=== PATIENT | female | born 1960 | race Caucasian/White ===

== ENCOUNTER 2018-07-11 13:28 | Emergency (ER) | payer BC, SELFPAY ==
[2018-07-11 13:33] VITALS: BP 124/56; PULSE 68; RESP 12; TEMP 36.6; O2SAT 99
--- NOTE | 2018-07-11 13:57 | DI.CT_ITS ---
SYMPTOMS/DIAGNOSIS: ABD DISCOMFORT, BLOATING, GAS CT OF THE ABDOMEN AND PELVIS: Images were performed from the lung bases through the ischial tuberosities after IV and oral contrast. There are several tiny cysts seen in the liver and both kidneys. There is mild prominence of both renal collecting systems without evidence of obstructing stone. The bladder is somewhat distended which could cause some distention of the collecting systems. There is no bowel dilatation or inflammatory change. The spleen, gallbladder, pancreas and adrenals as well as uterus and ovaries are unremarkable. There is no free air or free fluid or adenopathy. The heart size appears normal. The lung bases are clear. IMPRESSION: No acute abnormality.
--- NOTE | 2018-07-11 13:57 | DI.CT_ITS ---
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 There is no evidence of a mass, hemorrhage or infarct. The ventricles are normal in size. No bony destruction is seen. There is no evidence of sinus or mastoid air cell opacification. IMPRESSION: Right temporal craniotomy. No acute abnormality.
[2018-07-11] MEDS: Breeza Beverage 473 ML BTL PO ×2 (14:23→14:24)
[2018-07-11] MEDS: Omnipaque 350 MG/ML 50 ML BTL IJ (14:23)
[2018-07-11 14:43] LABS: Bilirubin Negative (Negative); Blood Negative (Negative); Clarity Clear; Glucose Negative (Negative); Ketones Negative (Negative); Leukocyte Esterase Negative (Negative); Nitrite Negative (Negative); Urobilinogen 0.2 EU/dL (Up TO 0.2)
[2018-07-11 14:45] LABS: Abs Immature Grans 0.01 k/cumm (0.0-0.09); Absolute Basophil Count 0.02 k/cumm (0.0-0.2); Absolute Eosinophil Count 0.05 k/cumm (0.0-0.7); Absolute Lymphocyte Count 1.26 k/cumm (1.2-3.4); Absolute Monocyte Count 0.22 k/cumm (0.11-0.7); Absolute Neutrophil Count 2.78 k/cumm (1.2-6.7); Basophils % 0.5; Eosinophils % 1.2; HCT 43.6 % (36.0-46.0); HGB 14.5 g/dL (12.0-15.5); Immature Grans % 0.2; Mean Corp. HGB Concentration 33.3 g/dL (32.0-36.0); Mean Corpuscular Hemoglobin 30.4 pg (27.0-33.0); Mean Corpuscular Volume 91.4 fL (80-95); Mean Platelet Volume 9.7 fL (8.0-11.0); Monocytes % 5.1; Platelet Count 222 x1000/uL (130-400); RBC 4.77 m/cumm (4.00-5.20); RBC Distribution Width 13.4 % (11.7-14.6); White Blood Cell Count 4.34 k/cumm (4.4-10.8)
[2018-07-11 15:04] LABS: ALT 33 U/L (12-78); AST 27 U/L (15-37); Albumin 4.5 g/dL (3.4-5.0); Alkaline Phosphatase 64 U/L (46-116); Anion Gap 8.4 mmol/L (3-11); BUN 15 mg/dL (7-18); Bilirubin, Total 0.4 mg/dL (0.2-1.0); CO2 30.6 mmol/L (21.0-32.0); CREATININE 0.75 mg/dL (0.55-1.02); Calcium 10.1 mg/dL (8.5-10.1); Chloride 102 mmol/L (98-107); Glucose 113 mg/dL (70-100); Lipase 163 U/L (73-393); Magnesium 1.9 mg/dL (1.8-2.4); Potassium 3.8 mmol/L (3.5-5.1); Sodium 141 mmol/L (136-145); Total Protein 8.1 g/dL (6.4-8.2)
--- NOTE | 2018-07-11 15:14 | W.ED.GENAD ---
Discharge Plan Disposition Patient Disposition: HOME Condition: Stable Discharge Details Chief Complaint: Dizzy/Sync Clinical Impression: Belching symptom, Vagal reaction Primary Care Provider: Jimi Diego ED Provider: Cisco Dee Home Meds and New Rx's Prescriptions: New simethicone 125 mg capsule 125 mg PO QID PRN (Reason: abdominal distention) Qty: 20 RF: 0 Continued montelukast [Singulair] 10 mg Tablet 10 mg PO QPM RF: 0 fluticasone [Flonase Allergy Relief] 50 mcg/actuation [place],Suspension 1 spray Intranasal DAILY RF: 0 Discharge Instructions Instructions: Gas and Bloating (ED) Additional Instructions: Feel free to return to the emergency department for any new or worsening symptoms otherwise follow-up with your primary care provider as needed for reassessment Referrals: Jimi Diego [Primary Care Provider] - (Follow-up with your primary care provider for reassessment) Discharge Data Discharge Date/Time-TO BE ENTERED AT DEPARTURE: 07/11/18 17:00 Medical Decision Making Patient presenting to the emergency department for chief complaint of abdominal distention, belching, chest pressure and dizziness. Patient states that this is been going on for 6 months since she has had radiation therapy but 5 days ago she had a colonoscopy that is worsened her belching symptoms that occasionally to chest pressure, diaphoresis, and syncope or near syncope. Patient states that the symptoms are similar with the addition to some of the dizziness and one episode of syncope that occurred just prior to her colonoscopy. Physical exam is unremarkable except for significant belching during examination. Plan to check labs, CT imaging, and head CT given patient's history of brain mass. Review of labs is unremarkable, head CT shows no acute findings, and abdomen CD shows normal stomach and bowels with no obstruction or mucosal thickening. There is a radiologist read of mild bilateral hydronephrosis with otherwise no findings are noted. Patient reassessed and has had no new or worsening symptoms. Thoroughly discussed possible vagal response due to excess gas and belching as possibility of causing her symptoms given her description that the gas buildup seems to stimulate all the other symptoms but I feel that diagnosis is not straightforward. I am reassured that patient states that the symptoms have been going on for 6 months. Patient does state that she is been working on a follow-up with GI specialist at [facility]. attempt to help relieve some symptoms patient was prescribed simethicone 125 4 times daily to see if this helps. After discussion of diagnosis and plan of care patient has no further needs, questions, or concerns and states clear understanding to return to the emergency department for any worsening symptoms. ECG Data Interpretation: EKG shows sinus rhythm with a rate of 69, no acute ST changes. HPI General Mode of arrival: ambulatory. Date/Time Provider Initiated Documentation: 07/11/18 13:38. Limitations to Documentation: no limitations. Information obtained by: patient and RN notes reviewed. History of Present Illness 57 year old F presents to the emergency department with the chief complaint of dizziness, chest pressure, abdominal pain/gas/bloat, described as mild, with intensity rated at 1. Quality is described as aching (bloating), and is localized to the abdomen. Patient started experiencing this month(s) (6) and it has been constant. No relieving factors improve symptom(s), No exacerbating factors reported . Patient notes no other symptoms.. Patient did receive the following treatments prior to arrival, none Related Data Home Medications Medication Instructions Recorded Confirmed fluticasone [Flonase Allergy 1 spray INTRANASAL DAILY 07/11/18 07/11/18 Relief] montelukast [Singulair] 10 mg PO QPM 07/11/18 07/11/18 simethicone 125 mg PO QID PRN #20 cap 07/11/18 Previous Rx's Medication Instructions Recorded simethicone 125 mg PO QID PRN #20 cap 07/11/18 Allergies Allergy/AdvReac Type Severity Reaction Status Date / Time Penicillins Allergy Severe Anaphylaxsi Unverified 07/11/18 13:40 s General Stated Complaint: Dizzy/Sync JANEEN: 3 Review of Systems Constitutional Denies chills, Denies fever(s) and Reports poor appetite ENT Reports dizziness Cardiovascular Reports chest pain, Reports diaphoresis, Reports lightheadedness and Denies dyspnea Respiratory Denies dyspnea Gastrointestinal Reports as per HPI, Reports abdominal pain, Reports belching, Denies melena, Reports bloating, Denies change in bowel habits, Denies constipation, Reports excessive flatus, Denies diarrhea, Reports nausea and Reports vomiting Genitourinary Denies hematuria, Denies urinary incontinence, Denies urinary hesitancy and Denies urinary urgency Integumentary/Breasts Denies rash Neurologic Reports dizziness PFSH Social History Smoking/Tobacco Use Status: Former Tobacco Use Exam Const General: cooperative Orientation: alert, awake and oriented x3 Resp Effort & Inspection: normal respiratory effort and able to speak in complete sentences Auscultation: clear to auscultation bilaterally Cardio Rate: regular rate Rhythm: regular rhythm Heart Sounds: S1 normal and S2 normal GI Inspection: other (belching) Palpation: soft, no hepatosplenomegaly, not firm, no guarding, no masses, no pulsatile masses, not rigid, no splenomegaly and nontender Auscultation: normal bowel sounds Back/Spine/Pelvis Back: no CVA tenderness Neuro General: alert, awake, oriented x3, gait normal, tone normal, moves all extremities, no meningeal signs, no focal motor deficits, CN's II-XI intact bilaterally, not confused and not obtunded Cognition: normal cognition Speech: speech normal Gait: normal gait Motor: muscle tone normal throughout Sensory Exam: no sensory deficits noted Course Vital Signs Temperature 36.6 C 07/11/18 13:33 Pulse 68 07/11/18 13:33 Respiratory Rate 12 07/11/18 13:33 Blood Pressure 124/56 L 07/11/18 13:33 Pulse Oximetry 99 07/11/18 13:33 Temperature 36.6 C 07/11/18 13:33 Temperature Source Skin 07/11/18 13:33 Pulse 68 07/11/18 13:33 Respiratory Rate 12 07/11/18 13:33 Respiratory Effort 07/11/18 14:01 Blood Pressure 124/56 L 07/11/18 13:33 Blood Pressure Position Sitting 07/11/18 13:33 Pulse Oximetry 99 07/11/18 13:33 Oxygen Delivery Method Room Air 07/11/18 13:33 Oxygen Flow Rate 0 07/11/18 13:33 Pain Level 1 07/11/18 13:33 Lab/Test Results Lab/Test Results: Laboratory Tests Range/Units 07/11/18 07/11/18 14:01 14:40 WBC (4.4-10.8) k/cumm 4.34 L RBC (4.00-5.20) m/cumm 4.77 Hgb (12.0-15.5) g/dL 14.5 Hct (36.0-46.0) % 43.6 MCV (80-95) fL 91.4 MCH (27.0-33.0) pg 30.4 MCHC (32.0-36.0) g/dL 33.3 RDW (11.7-14.6) % 13.4 Plt Count (130-400) x1000/uL 222 MPV (8.0-11.0) fL 9.7 Immature Gran % 0.2 Neutrophils % 64.0 Lymphocytes % 29.0 Monocytes % 5.1 Eosinophils % 1.2 Basophils % 0.5 Absolute Neutrophils (1.2-6.7) k/cumm 2.78 Absolute Lymphocytes (1.2-3.4) k/cumm 1.26 Absolute Monocytes (0.11-0.7) k/cumm 0.22 Absolute Eosinophils (0.0-0.7) k/cumm 0.05 Absolute Basophils (0.0-0.2) k/cumm 0.02 Urine Color (Yellow) Yellow Urine Clarity Clear Urine pH (5-8) 7.0 Ur Specific [place] (1.005-1.025) 1.010 Urine Protein (Negative) mg/dL Negative Urine Ketones (Negative) mg/dL Negative Urine Blood (Negative) Negative Urine Nitrite (Negative) Negative Urine Bilirubin (Negative) Negative Urine Urobilinogen (Up TO 0.2) EU/dL 0.2 Ur Leukocyte Esterase (Negative) Negative Urine Glucose (Negative) mg/dL Negative
[2018-07-11 15:16] LABS: Troponin I < 0.02 ng/mL (0.00-0.06)
[2018-07-11] MEDS: Omnipaque 350 MG/ML 100 ML BTL IV (15:43)
--- NOTE | 2018-07-11 16:10 | DI.VRAD_ITS ---
EXAM: CT Head Without Contrast EXAM DATE/TIME: 07/11/2018 3:27 PM CLINICAL HISTORY: 57 years old, female; Pain; Prior surgery; Surgery date: 6+ months; Surgery type: 1 year ago - craniotomy. Base of skull condroid sarcoma; Patient HX: Dizziness TECHNIQUE: Axial computed tomography images of the head/brain without contrast. Coronal and sagittal reformatted images were created and reviewed. COMPARISON: No relevant prior studies available. FINDINGS: Brain: Normal. No hemorrhage. No significant white matter disease. No edema. Ventricles: Normal. No ventriculomegaly. Bones/joints: Status post right temporoparietal craniotomy. No acute osseous abnormalities. Sinuses: Normal as visualized. No acute sinusitis. Mastoid air cells: Normal as visualized. No mastoid effusion. Soft tissues: Normal. IMPRESSION: No acute findings. Dictated and Authenticated by: Efraín Valdes MD. Ordering:DELISA Peck MD
--- NOTE | 2018-07-11 16:17 | DI.VRAD_ITS ---
EXAM: CT Abdomen and Pelvis With Contrast EXAM DATE/TIME: 07/11/2018 3:27 PM CLINICAL HISTORY: 57 years old, female; Pain; Other: Abd bloating discomfort TECHNIQUE: Axial computed tomography images of the abdomen and pelvis with intravenous contrast. All CT scans at this facility use at least one of these dose optimization techniques: automated exposure control; mA and/or kV adjustment per patient size (includes targeted exams where dose is matched to clinical indication); or iterative reconstruction. Coronal and sagittal reformatted images were created and reviewed. CONTRAST: 100 ml of omni 350 administered intravenously. COMPARISON: No relevant prior studies available. FINDINGS: Lower thorax: No acute findings. ABDOMEN: Liver: Tiny cystic liver foci are present, but too small to characterize. These have a simple appearance by CT. Gallbladder and bile ducts: Normal. No calcified stones. No ductal dilation. Pancreas: Normal. No ductal dilation. Spleen: Normal. No splenomegaly. Adrenals: Normal. No mass. Kidneys and ureters: Tiny too small to characterize bilateral renal cysts are present, but appear to be simple. Minimal bilateral hydronephrosis but no other signs of obstructive uropathy. Stomach and bowel: Normal. No obstruction. No mucosal thickening. Appendix: No evidence of appendicitis. PELVIS: Bladder: Unremarkable as visualized. Reproductive: Unremarkable as visualized. ABDOMEN and PELVIS: Intraperitoneal space: Normal. No free air. No significant fluid collection. Bones/joints: No acute fracture. No dislocation. Soft tissues: Unremarkable. Vasculature: Normal. No abdominal aortic aneurysm. Lymph nodes: Normal. No enlarged lymph nodes. IMPRESSION: Minimal bilateral hydronephrosis, otherwise no acute findings. Dictated and Authenticated by: Efraín Valdes MD. Ordering:DELISA Peck MD
[2018-07-11 16:58] VITALS: BP 116/69; PULSE 65; RESP 14; TEMP 37.1; O2SAT 95
== END 2018-07-11 17:00 | disposition home or self-care (01) ==
PROVIDERS: Emergency Provider Nurse Practitioner Family; PCP Nurse Practitioner Family
DX: R14.2 Eructation (principal); R55 Syncope and collapse
CPT/HCPCS: 80053; 83690; 93005; 99285; 70450; 74177; 81003; 83735; 84484; 85025; 93010; 99284; J3490; Q9967